=== PATIENT | male | born 1970 | race Caucasian/White ===

== ENCOUNTER 2022-08-31 21:00 | Emergency (ER) | payer SELFPAY ==
[2022-08-31 21:09] VITALS: BP 117/89; PULSE 95; RESP 16; TEMP 36.7; O2SAT 97; BMI 29.1
--- NOTE | 2022-09-01 19:17 | ED.FALL ---
HPI - Fall General Chief Complaint: Fall/Minor Trauma Stated Complaint: Split upper lip Time Seen by Provider: 08/31/22 21:20 History of Present Illness HPI Narrative: Patient c/o tripping over a dog gate today and falling. Patient has laceration to right upper lip - bleeding controlled. Patient denies LOC/vision changes/nausea. Patient states his teeth and jaw lines up normally. Patient does admit to drinking alcohol today. Patient states his drove him to the ER today. 52-year-old man presenting to the emergency department with complaint of cut to his lip. Apparently had an accident while placing drywall. Little unclear to me initially but it sounds like he did not actually cut himself with the drywall knife, he fell and somehow the handle struck his lip. later admits etoh involvement. Is not complaining of pain. There was no loss of consciousness. No neck or back pain. Thinks dentition intact. Related Data Home Medications Medication Instructions Recorded Confirmed No Known Home Medications 08/31/22 08/31/22 Allergies Allergy/AdvReac Type Severity Reaction Status Date / Time No Known Drug Allergies Allergy Verified 08/31/22 21:13 Review of Systems Status of ROS: Reports: 6 or more systems reviewed and unremarkable except as noted in History and below [facility] Medical History Alcohol use ?Z78.9 - Other specified health status (ICD-10) Surgical History (Updated 08/31/22 @ 21:13 by Cecilia Vitale RN) History of appendectomy ?Z90.49 - Acquired absence of other specified parts of digestive tract (ICD-10) Social History Smoking Status: Current every day smoker What tobacco products do you use: cigarettes Second hand tobacco smoke exposure: No How often do you have a drink containing alcohol: 4 or more times a week AUDIT-C Alcohol total score: 4 Non-prescribed substance use: denies use Exam Narrative: Exam Narrative: Pleasant. Does smell subtly of alcohol and I inquire as to this. NAD. Breathing easily. Moderate garces and mustache. At the right upper lip just touching the vermilion border and lacerated transected through the visible lip somewhat angulated and stellate laceration consistent with being split. In total about a cm and half There is extensive repair of dentition. Looks like on further exploration there is sensitivity at tooth 9. Is subluxed. I see blood at the dental line. There is gingival disease. Head otherwise looks to be atraumatic. Neck is supple nontender. Back nontender. Breathing easily. Pulse is regular but elevated. Const: Vital Signs, click to edit/add: Vital Signs - 24 hr 08/31/22 21:09 Temperature 98.1 F Pulse Rate [Left P ulse Oximeter] 95 Respiratory Rate 16 Blood Pressure [Ri ght Upper Arm] 117/89 Pulse Oximetry 97 Oxygen Delivery Me thod Room Air Documenting provider has reviewed patient's vital signs: yes Course Vital Signs Vital signs: Initial Vital Signs Temperature 98.1 F 08/31/22 21:09 Temperature Source Temporal Artery Scan 08/31/22 21:09 Pulse Rate 95 08/31/22 21:09 Pulse Rhythm Regular 08/31/22 21:09 Respiratory Rate 16 08/31/22 21:09 Blood Pressure 117/89 08/31/22 21:09 Blood Pressure Mean 98 08/31/22 21:09 Blood Pressure Position Sitting 08/31/22 21:09 Pulse Oximetry 97 08/31/22 21:09 Oxygen Delivery Method Room Air 08/31/22 21:09 Vital Signs Temperature 98.1 F 08/31/22 21:09 Pulse Rate 95 08/31/22 21:09 Respiratory Rate 16 08/31/22 21:09 Blood Pressure 117/89 08/31/22 21:09 Pulse Oximetry 97 08/31/22 21:09 Oxygen Delivery Method Room Air 08/31/22 21:09 Temperature 98.1 F 08/31/22 21:09 Pulse Rate 95 08/31/22 21:09 Respiratory Rate 16 08/31/22 21:09 Blood Pressure 117/89 08/31/22 21:09 Pulse Oximetry 97 08/31/22 21:09 Oxygen Delivery Method Room Air 08/31/22 21:09 MDM - Fall MDM Narrative Medical decision making narrative: Infraorbital block is proposed for repair. Injected with lidocaine. Excellent wound anesthesia achieved. Actually managed to approximate this wound surprisingly well with 3 Ethilon interrupted sutures. Tooth 9. Well loose is stable at this time. He does indicate does have a dentist that could go to. See patient discharge plan Discharge Plan Discharge Clinical Impression: Laceration of lip, Alcohol ingestion, Subluxation of tooth Patient Disposition: Home w/ Parent or Adult Condition: Improved Instructions: Laceration (ED) Additional Instructions: Can clean up initially as needed. Sutures out in? 5-6 days. Okay to get wet of course in this area but maybe avoid prolonged soaking until sutures are out. Keep moist with white petroleum jelly or antibiotic ointment for 3-4 days. Report spreading redness after 2 days, marked increase in pain, purulent drainage, fever. Please be seen by your dentist as soon as possible this next week. Prescriptions: No Action No Known Home Medications Follow Up/Referrals: Provider,Not a Local [Primary Care Provider] - Stand Alone Forms: Inflection Info Instructions
== END 2022-08-31 22:17 | disposition home or self-care (01) ==
PROVIDERS: Emergency Provider Family Medicine
DX: S01.511A Laceration without foreign body of lip, initial encounter (principal); F10.10 Alcohol abuse, uncomplicated; W01.198A Fall on same level from slipping, tripping and stumbling with subsequent striking against other object, initial encounter
CPT/HCPCS: 12011; 99283; 99284

== ENCOUNTER 2022-11-09 21:45 | Outpatient (CLI) | payer SELFPAY | END 2022-11-09 21:46 | disposition home or self-care (01) | LOC: AMB 11-10 07:27 | PROVIDERS: Visit Provider Family Medicine | DX: R53.1 Weakness (principal) | CPT/HCPCS: A0998 ==